=== PATIENT | female | born 1960 | race Caucasian/White ===

== ENCOUNTER 2024-08-22 07:16 | Day surgery (SDC) | payer MEDICAID, SELFPAY ==
--- NOTE | 2024-08-21 14:35 | HP.PCM.OB_ITS ---
History and Physical Date of Admission: 08/22/24 Pre-Op History and Physical ?HPI: The patient is a 63 year old female presenting for discussion regarding Thickened cystic endometrium?pre-operative visit.She is scheduled for Hysteroscopy D&C, possible polypectomy for thickend cystic endometrium , possible polypon 08/22/24. Procedure discussed along with risks, benefits and complications. Otheralternatives discussed for management. Consent form signed? Yes. ? ?PAST MEDICAL HISTORYPAST MEDICAL HISTORYDiagnosisDate?Mixed hyperlipidemia??Pap smear abnormality of cervix? ??PAST SURGICAL HISTORYPAST SURGICAL HISTORYProcedureLateralityDate?COLONOSCOPY FLX DX W/COLLJ SPEC WHEN PFRMD?03/25/16?Colonoscopy?PAST SURGICAL HISTORY OF???BENIGN BREAST BIOPSY?? ?CURRENT MEDICATIONSCurrent Outpatient MedicationsMedicationSigDispenseRefill?pravastatin (PRAVACHOL) 10 mg tabletTake 1 tablet by mouth daily at bedtime.90 tablet1?busPIRone (BUSPAR) 10 mg tabletTake 1 tablet by mouth two times a day.180 tablet1?FLUoxetine (PROZAC) 10 mg capsuleTake 1 capsule by mouth once daily.90 capsule1?multivitamin tabletTake 1 tablet by mouth once daily.???No current facility-administered medications for this visit.??ALLERGIES: Bactrim [Sulfamethoxazole-Trimethoprim]? PERSONAL HISTORY: SOCIAL HISTORYSocial History?Tobacco Use?Smoking status:Never?Smokeless tobacco:NeverVaping Use?Vaping status:Never UsedSubstance Use Topics?Alcohol use:No?Drug use:No ? FAMILY HISTORY: FAMILY HISTORYFAMILY HISTORY ProblemRelationAge of Onse t?DiabetesMother??other (Ovarian Cancer)Mother??LipidsFather??? REVIEW OF SYMPTOMS:negative except as noted above PHYSICAL EXAMINATION:? VITALS: Blood pressure 118/74, weight 70.3 kg (155 lb), last menstrual period 01/21/2008. ?GENERAL: The patient is well nourished, well hydrated in no acute distress. , The patient is oriented to time, place, and person. NECK: full range of motion LUNGS: Clear to auscultation bilaterally. no wheezes, rhonchi or rales HEART: Regular rate and rhythm, Normal heart sounds, and No murmurs or gallops? IMPRESSION: 56yo with thickened cystic appearing endometrium on ultrasound ? PLAN: hysteroscopy, D&C, possible polypectomy with symphion ? Pt has been counseled on risks/benefits and alternatives of surgery including but not limited to anesthesia, bleeding, infection, uterine perforation with subsequent injury to pelvic structures including bowel, bladder, ureters and vessels. Pt wishes to proceed with surgery at this time. ?I have reviewed and updated past medical and surgical history, medications and allergies Marya Mcdonald MD 08/20/2024 10:40 AM?Office Visit on 08/20/2024? ?Office Visit on 08/20/2024 epic:EPIC?RE PORT&MR_REPORTS&[id number] ??Note shared with patient
[2024-08-22] VITALS (9 sets, daily range): BP systolic 117–138; BP diastolic 61–79; PULSE 62–84; RESP 16; TEMP 36.1–36.8; O2SAT 91–99; BMI 28.8
--- NOTE | 2024-08-22 08:05 | PRE.ANES_ITS ---
ASA Classification* ASA Classification ASA Classification: 1 Assessment & Plan Anesthesia* Anesthesia Assessment Anesthesia Assessment: Discussed sedation and/or anesthesia options, risks, benefits, and alternatives with patient/parents/legal guardian/POA. Questions invited. The patient/parents/legal guardian/POA seems to understand and agrees to proceed with anesthesia plan. Reviewed the physical assessment, medical history, allergy history and patient home medications list prior to surgery/procedure/anesthetic and documented any changes. Performed airway and anesthesia risk assessments. Anesthesia Type Anesthesia Type: MAC History Source History Obtained from:: Patient and Chart Anesthesia Focused Assessment* Temperature: 97.6 F Pulse Rate: 71 Blood Pressure: 125/61 Respiratory Rate: 16 Pulse Ox: 99 Oxygen Delivery Method: Room Air Airway Assessment Mouth opens: >3 cm Mallampati Score: III Teeth Condition: Caps/Crowns (Patient has a cap on her right upper molar. It is tight.) and Missing (Patient is missing molar on either side on the lower jaw.) Neck Range of motion (ROM): Full ROM Focused Labs Anesthesia Preop lab: CBC WBC Pending 08/22/24 07:56 08/22/24 RBC Pending 08/22/24 07:56 08/22/24 Hgb Pending 08/22/24 07:56 08/22/24 Hct Pending 08/22/24 07:56 08/22/24 Plt Count Pending 08/22/24 07:56 08/22/24 CHEMISTRY Potassium Pending 08/22/24 07:56 08/22/24 Sodium Pending 08/22/24 07:56 08/22/24 BUN Pending 08/22/24 07:56 08/22/24 Creatinine Pending 08/22/24 07:56 08/22/24 Glucose Pending 08/22/24 07:56 08/22/24 COAG Pre-Assessment Diagnosis/Proposed Procedure Planned Operative Procedure(s): Hysteroscopy,D&C Symphion Anesthesia History 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 When Was Last Pacemaker Check QUESTION #4 FULL TEXT: You/Your Family Experience fever (hyperthermia) with Anesthesia Last Oral Intake Last Oral intake: Last Oral Intake NPO since 17:00 08/22/24 07:40 Meds taken in AM with sips of No 08/22/24 07:40 water? 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 Female Yes 08/14/24 15:17 HX of Motion Sickness No 08/14/24 15:17 HX of N/V After Surgery No 08/14/24 15:17 Non-Smoker Yes 08/14/24 15:17 Duration of Surgery greater No 08/14/24 15:17 than 60 minutes Number of Risk Factors 2 08/14/24 15:17 PONV Score Moderate Risk 08/14/24 15:17 Height & Weight Height & Weight: Anesthesia: Height & Weight Height 5 ft 2 in 08/22/24 07:40 Weight: 71.395 kg 08/22/24 07:40 Body Mass Index (BMI) 28.8 08/22/24 07:40 Respiratory Assessment Respiratory Assessment - grinder mill operator: Respiratory Tract Infection Hx - grinder mill operator Hx Respiratory Tract Infection No 08/14/24 15:17 STOP Sleep Apnea STOP Sleep Apnea - grinder mill operator: STOP Sleep Apnea - grinder mill operator Hx Hypertension No 08/14/24 15:17 Hx Sleep Apnea No 08/14/24 15:17 CPAP BIPAP Do you snore loudly (louder No 08/14/24 15:17 than talking or can be heard Do you often feel tired/ No 08/14/24 15:17 fatigued/ sleepy during daytime? Has anyone observed you stop No 08/14/24 15:17 breathing during sleep? STOP Results Negative 08/14/24 15:17 QUESTION #5 FULL TEXT : Do you snore loudly (louder than talking or can be heard through closed doors)? 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 Specify any problems Hx of Preganancy in last 3 N/A 08/14/24 15:17 Months Nurse Filling Out Transfusion NBUCHER 08/14/24 15:17 & Questions: Date: 08/14/24 08/14/24 15:17 Time: 15:18 08/14/24 15:17 Patient unable to answer at this time (ie. confused, unrespo /Reproduction History /Reproductive History - grinder mill operator: /Reproductive Hx- grinder mill operator Hx Now No 08/14/24 15:17 Gestational Age (in weeks): EDC: Hx Hx Para Hx Section SAB No 08/14/24 15:17 PFSH Medical History Post-menopausal Wears glasses Anxiety Gastric reflux Non-smoker Home Medications ?Medication ?Instructions ?Recorded ?Last Taken ?Type buspirone 10 mg tablet 10 mg PO BID 08/14/24 History fluoxetine 10 mg capsule 10 mg PO DAILY 08/14/2402/06 History pravastatin 10 mg tablet 10 mg PO QHS 08/14/24 History Allergy/AdvReac Type Severity Reaction Status Date / Time sulfamethoxazole (From AdvReac Severe Rash Verified 08/22/24 07:38 Bactrim) trimethoprim (From Bactrim) AdvReac Severe Rash Verified 08/22/24 07:38 Surgical History History of colonoscopy Social History Smoking Status: Never smoker Review of Systems (Anesthesia) ROS Narrative System reviewed and no additional complaints, except as documented.
[2024-08-22 08:10] LABS: Hematocrit 39.1 % (37-47); Hemoglobin 13.5 g/dL (12.0-15.0); Mean Corp Hgb Conc 34.5 g/dL (32-36); Mean Corpuscular Hgb 29.5 pg (27.0-32.0); Mean Corpuscular Volume 85.4 fL (81-99); Platelet Count 269 K/mm3 (150-450); RBC Distribution Width CV 12.4 % (11.6-14.6); RBC Distribution Width SD 38.2 fl (35.1-43.9); Red Blood Count 4.58 M/mm3 (4.2-5.4); White Blood Count 4.2 K/mm3 (4.4-11.0)
[2024-08-22 08:31] LABS: Anion Gap 11 (5-15); BUN 12 mg/dL (4-19); BUN/Creat Ratio 16.6 RATIO (10-20); Calcium,Total 9.1 mg/dL (7.6-11.0); Carbon Dioxide 19.9 mmol/L (21.0-32.0); Chloride 108 mmol/L (98-108); Creatinine, Serum 0.72 mg/dL (0.70-1.20); EST Glomerular Filtration Rate 95 (>60); Estimated Creatinine Clearance 74.97 ml/min (50-250); Glucose 135 mg/dL (70-99); Potassium 3.8 mmol/L (3.3-5.1); Sodium Level 139 mmol/L (133-145)
--- NOTE | 2024-08-22 08:55 | EMB_PTH ---
PATIENT: MELITA SANDHU LOC: [facility] [place] U#:[id number] AGE/SX: 63/F ROOM: RE08/22/[address]: Dr. Marya Hernandez, MDDOB: 1960 BED: DIS: 08/22/2024 SPEC #: [id number] RECD: 08/22/24 13:34 STATUS: RADHA ANH #: [id number] KALI: 08/22/24 08:[address]: Marya Hernandez DEPT: SURGICAL PATHOLOGY RECD BY: Santos Davis ENTERED: 08/22/24 13:35 SP TYPE: ENDOM BX/C YAMILA DR: Dr. Enma Tomlinson MD Tissues: A - Endometrium, NOS Procedures: Surgery Specimen Level IV HEADER OPERATION: Hysteroscopy, D&C PRE-OP DIAGNOSIS: Thickened cystic appearing endometrium on ultrasound TISSUE SUBMITTED: A- Endometrial curettings MICROSCOPIC DIAGNOSIS A. Endometrium curettage: * Benign endometrial polyp(s) with cystic atrophy MICROSCOPIC DESCRIPTION Slides are reviewed. GROSS DESCRIPTION A. Received in formalin in a container labeled with the patient's name, date of , and endometrial curettings are multiple red-lugo fragments of soft tissue admixed with blood and mucus measuring 2.5 x 1.5 x 0.4 cm in aggregate. Submitted in toto in A1. [facility] 08/23/2024 CPT:21843
--- NOTE | 2024-08-22 09:22 | OP.PCM_ITS ---
Operative Report (Standard) Operative Information Date of Procedure: 08/22/24 Pre-Operative Diagnosis: Thickened endometrium, Endometrial polyp Post-Operative Diagnosis: same Surgery/Procedure Performed: hysteroscopy, D&C, polypectomy with symphion software manager: Yes Show Host: maryellen wolfe ms3 Tasks completed by marketing assistant manager: Retracting Type of Anesthesia: MAC RN Documented Start/Stop Times: Operation Date: 08/22/24 08:55 Case Time Into Pre-Op 08/22/24 07:19 Out of Pre-Op 08/22/24 09:19 Procedure Start Time: 09:34 Procedure Stop Time: 09:40 Select all DRAINS/GRAFTS/IMPLANTS that apply: None Estimated Blood Loss: <5cc Fluids Replaced: 250cc Specimen collected: Yes Description of specimen(s) removed: endometrial curettings, endometrial polyps Description of surgery: Informed consent was obtained the patient was taken the operating room she was placed in supine position. She was given anesthesia. She was then placed in the [facility] where she was prepped and draped in the normal sterile fashion. At this time the weighted speculum was placed in the posterior fornix of vagina. Single-tooth tenaculum was used to gently grasp the anterior lip the cervix. At this time the uterine cavity was sounded to approximately 8 cm. Gentle dilatation was performed once adequate dilatation of the cervix was achieved the hysteroscope using normal saline as a distention medium was placed. Tubal ostia visualized- large endometrial poly arising from posterior aspect of uterine fundus. Symphion resecting device used to obtain endometrial curettings and to perform polypectomy. Otherwise cavity appears atrophic. Tissue will be sent to pathology for evaluation. Tenaculum removed. Good hemostasis. Instrument, lap count correct x 2. Vaginal Sweep was negative. fluid deficit 350cc Surgical Findings: large endometrial polyp Complications Complications: No Admit VTE Documentation VTE Present on Admission: Yes VTE Mechan Device Prophylaxis: SCD's VTE Pharm Prophylaxis ordered?: No Reason prophylaxis not ordered: Treatment Not Indicated
--- NOTE | 2024-08-22 09:54 | PCM.POST.ANE ---
Anesthesia: Postop Eval I Current Vital Signs Temperature: 97.8 F Pulse Rate: 81 Blood Pressure: 135/71 Respiratory Rate: 16 Pulse Ox: 92 Assessment Airway patent: Yes Spontaneous unlabored respirations: Yes nausea: No Vomiting: No Anesthesia Complication: No Fluid Hydration Crystalloid volume administer (ml): 400 Total IV fluid infused: 400 Progress Note Anesthesia document: Postop Eval 1 completed: Yes
--- NOTE | 2024-08-22 10:50 | POSTOPAN2_ITS ---
Anesthesia Postop Eval I Sum Postop Eval Completion status Anesthesia document: Postop Eval 1 completed: Yes Anesthesia Postop Eval I Summary Anesthesia Postop Eval I Summary: Anesthesia Postop Eval I: Assessment Summary Airway patent Yes 08/22/24 09:54 FIRE FIGHTER CRASH FIRE AND RESCUE.TNES Spontaneous unlabored Yes 08/22/24 09:54 FIRE FIGHTER CRASH FIRE AND RESCUE.TNES respirations Mental status nausea No 08/22/24 09:54 FIRE FIGHTER CRASH FIRE AND RESCUE.TNES Vomiting No 08/22/24 09:54 FIRE FIGHTER CRASH FIRE AND RESCUE.TNES Anesthesia Postop Eval I: Fluid Summary Crystalloid volume administer 400 08/22/24 09:54 FIRE FIGHTER CRASH FIRE AND RESCUE.TNES (ml) Colloids volume administered ( ml) Blood Product volume administered (ml) Total IV fluid infused 400 08/22/24 09:54 FIRE FIGHTER CRASH FIRE AND RESCUE.TNES Anesthesia Postop Eval I: Summary Notes Anesthesia Complication No 08/22/24 09:54 FIRE FIGHTER CRASH FIRE AND RESCUE.TNES Anesthesia Complication Comment: Post-operative progress note Anesthesia: Postop Eval II Evaluation Mental status: Awake and Calm Pain Level: 1 nausea: No Vomiting: No Complications Anesthesia Complication: No
--- NOTE | 2024-08-22 10:50 | PCM.POSTANE2 ---
Anesthesia Postop Eval I Sum Postop Eval Completion status Anesthesia document: Postop Eval 1 completed: Yes Anesthesia Postop Eval I Summary Anesthesia Postop Eval I Summary: Anesthesia Postop Eval I: Assessment Summary Airway patent Yes 08/22/24 09:54 VINYL WELDER AND FABRICATOR.TNES Spontaneous unlabored Yes 08/22/24 09:54 VINYL WELDER AND FABRICATOR.TNES respirations Mental status nausea No 08/22/24 09:54 VINYL WELDER AND FABRICATOR.TNES Vomiting No 08/22/24 09:54 VINYL WELDER AND FABRICATOR.TNES Anesthesia Postop Eval I: Fluid Summary Crystalloid volume administer 400 08/22/24 09:54 VINYL WELDER AND FABRICATOR.TNES (ml) Colloids volume administered ( ml) Blood Product volume administered (ml) Total IV fluid infused 400 08/22/24 09:54 VINYL WELDER AND FABRICATOR.TNES Anesthesia Postop Eval I: Summary Notes Anesthesia Complication No 08/22/24 09:54 VINYL WELDER AND FABRICATOR.TNES Anesthesia Complication Comment: Post-operative progress note Anesthesia: Postop Eval II Evaluation Mental status: Awake and Calm Pain Level: 1 nausea: No Vomiting: No Complications Anesthesia Complication: No
--- NOTE | 2024-08-22 11:46 | DCINST_ITS ---
Discharge Instructions Diet Discharge Diet: No restrictions DC O2, CPAP, BIPAP needs Home O2 Discharge instructions: No Dressing / Incision Discharge Activity: May Drive (once you are more than 24 hours out from surgery) and May Shower (once you are more than 24 hours out from surgery) May resume sexual activity in: 1 week (nothing in the vagina and no soaking in water for 1 week) Weight Bearing Status: Weight bearing as tolerated Lifting Restrictions: none Dressing / Incision Call your doctor if you observe: Fever of 101 or Higher, Using more than 1 pad per hour, Shortness of breath, Dizziness, Chest pain, Increased palpitations (irregular heartbeat), Calf discomfort and Uncontrolled pain Follow Up Care When: You do not need to schedule follow up Test Results: Test results from this visit will be discussed in further detail at your follow- up appointment, if applicable. Discharge Plan Admission Attending Provider: Marya Hernandez Primary Care Provider: Enma Tomlinson Instructions Print Language: Taiwanese Discharge Orders/Prescriptions Prescriptions: Continued pravastatin 10 mg tablet 10 mg PO QHS buspirone 10 mg tablet 10 mg PO BID fluoxetine 10 mg capsule 10 mg PO DAILY Referrals / Follow Up: Enma Tomlinson MD [Primary Care Provider] - Disposition Disposition (needs filled in before D/C Order can be placed): Home, Self Care
== END 2024-08-22 12:00 | disposition home or self-care (01) ==
LOC: SDC 07:17 → AC 07:18
PROVIDERS: Obstetrics & Gynecology; PCP Internal Medicine; Referring Provider Obstetrics & Gynecology; Visit Provider Obstetrics & Gynecology
PROC: 0UB98ZZ Excision of Uterus, Via Natural or Artificial Opening Endoscopic (ICD-10-PCS; CPT 58558; principal; 2024-08-22 08:40)
DX: N84.0 Polyp of corpus uteri (principal); E78.2 Mixed hyperlipidemia; Z79.899 Other long term (current) drug therapy
CPT/HCPCS: 58558; 00952; 80048; 85027; 88305; A4216